=== PATIENT | male | born 1940 | race Caucasian/White ===

== ENCOUNTER 2024-08-13 17:42 | Emergency (ER) | payer MEDICARE, BC ==
[2024-08-13] MEDS: Bacitracin Oint 1 GM U/D Packet TOP ONE (19:19)
[2024-08-13] MEDS: Diphtheria,Pertussis(Acell),Tetanus Vaccine 0.5 ML Syringe IM ONE (19:20)
[2024-08-13] MEDS: Lidocaine 1% 5 ML VIAL INJECT ONE (19:34)
== END 2024-08-13 19:37 | disposition home or self-care (01) ==
LOC: LL.ED 17:42
DX: S61.012A Laceration without foreign body of left thumb without damage to nail, initial encounter (principal); Z79.82 Long term (current) use of aspirin; Z79.899 Other long term (current) drug therapy; Z91.040 Latex allergy status; Z88.0 Allergy status to penicillin; Z88.1 Allergy status to other antibiotic agents; Z23 Encounter for immunization; W31.2XXA Contact with powered woodworking and forming machines, initial encounter
CPT/HCPCS: 12002; 90471; 90715; 99282-25; 99283; J3490